=== PATIENT | female | born 1985 | race Caucasian/White ===

== ENCOUNTER 2019-05-02 20:13 | Emergency (ER) | payer BC, OTHER ==
[~2019-05-02] VITALS: Ht 162.6 cm; Wt 68.0 kg
--- NOTE | 2019-05-02 20:30 | ED Lower Extremity ---
General Chief Complaint: Lower Extremity Stated Complaint: LT FOOT INJ Source: patient Exam Limitations: no limitations History of Present Illness Date Seen by Provider: May 02, 2019 Time Seen by Provider: 20:15 Initial Comments The patient is a very pleasant 34-year-old female who presents for evaluation of a left foot injury. She states that she was helping to move a camper and put her foot down and ended up hitting the top of her foot on a piece of metal quite hard. She has some swelling to the top of the left foot and has significant pain when trying to fully bear weight. She denies any ankle pain or any other complaints. She is alert and oriented 4, calm, and appears to be in no distress. Location Injury Occurred: home Onset: just prior to arrival Severity: moderate Pain/Injury Location: right foot Method of Injury: direct blow Modifying Factors: Improves With Rest Allergies and Home Medications Patient Home Medication List Home Medication List Reviewed: Yes Review of Systems Constitutional: no symptoms reported EENTM: no symptoms reported Respiratory: no symptoms reported Cardiovascular: no symptoms reported Gastrointestinal: no symptoms reported Genitourinary: no symptoms reported Musculoskeletal: other (left foot pain, swelling on top of left foot, ttp over 2nd, 3rd, and 4th metatarsals) Skin: no symptoms reported Psychiatric/Neurological: No Symptoms Reported All Other Systems Reviewed Negative Unless Noted: Yes Past Baifdmj-Igqpjr-Yumfej Hx Past Med/Social Hx: Reviewed Nursing Past Med/Soc Hx Patient Social History Recent Foreign Travel: No Contact w/Someone Who Travel: No Physical Exam Vital Signs Capillary Refill : Height, Weight, BMI Height: '" Weight: lbs. oz. kg; BMI Method: General Appearance: WD/WN, no apparent distress HEENT: PERRL/EOMI, normal ENT inspection Cardiovascular: regular rate, rhythm, no edema Respiratory: normal breath sounds, no respiratory distress Feet: left foot bone tenderness (2nd, 3rd, 4th metatarsals), left foot limited range of motion, left foot swelling Neurologic/Psychiatric: clinical care coordinator II-XII nml as tested, alert, normal mood/affect, oriented x 3 Skin: normal color, warm/dry Progress/Results/Core Measures Results/Orders My Orders Orders - COREY WEEKS DO Ice: Apply To Affected Area (05/02/19 20:20) Foot 3 View Left (05/02/19 20:20) Progress Progress Note : Progress Note @2026 - preliminary read of the left foot x-ray film is unremarkable. Patient given Robbi wrap and crutches. Advised patient to follow up with her PCP and return to the emergency Department immediately for new or worsening symptoms. T he patient is stable for discharge. Departure Impression Primary Impression: Contusion of left foot Disposition: HOME, SELF-CARE Condition: Stable Departure-Patient Inst. Decision time for Depature: 20:35 Referrals: MONICA LOVETT DO Patient Instructions: Contusion (DC) Add. Discharge Instructions: He is a crutches provided. Follow-up with her doctor in the next 2-3 days. Apply ice and keep extremity elevated at home. Return to the emergency department for new or worsening symptoms. COREY WEEKS DO May 02, 2019 20:30
--- NOTE | 2019-05-02 20:35 | Diagnostic Imaging Report ---
INDICATION: Pain status post injury COMPARISON: None. FINDINGS: 3 views of the left foot demonstrate no acute fracture or dislocation. There are no focal osseous lesions. There is mild generalized soft tissue swelling. Joint spaces are well maintained. No radiopaque foreign bodies are seen. IMPRESSION: Mild generalized soft tissue swelling of the left foot, but no radiographic evidence of acute fracture or dislocation. Dictated by: Dictated on workstation # [id number]
[2019-05-02 20:52] VITALS: BP 114/75
== END 2019-05-02 20:52 | disposition home or self-care (01) ==
LOC: ER FS 20:15
DX: S90.32XA Contusion of left foot, initial encounter (principal); W22.8XXA Striking against or struck by other objects, initial encounter
CPT/HCPCS: 73630

== ENCOUNTER 2020-01-18 14:28 | Emergency (ER) | payer BC ==
[~2020-01-18] VITALS: Ht 163 cm; Wt 66.0 kg
--- NOTE | 2020-01-18 14:29 | ED General ---
General Stated Complaint: LT FOOT INJ History of Present Illness Date Seen by Provider: January 18, 2020 Time Seen by Provider: 14:29 Initial Comments Patient is a 34 y/o female who comes to the ER today c/o left foot injury. Patient was unhitching a pop-up camper with assistance of her . They accidentally lost control and dropped the tongue of the trailer. It landed over the dorsal aspect of her left foot causing a crush injury. Incident just happened prior to presentation. Minor abrasion to dorsal foot. Uncertain when her last tetanus imm was. Allergies and Home Medications Allergies Coded Allergies: Sulfa (Sulfonamide Antibiotics) (Verified Allergy, Unknown, 01/18/20) Home Medications Hydrocodone/Acetaminophen 1 Each Tablet, 1-2 EACH PO Q6H Prescribed by: DONAVON LANG on 01/18/20 1512 Ibuprofen 800 Mg Tablet, 800 MG PO Q8H PRN for PAIN Prescribed by: DONAVON LANG on 01/18/20 1512 Patient Home Medication List Home Medication List Reviewed: Yes Review of Systems Review of Systems Constitutional: no symptoms reported EENTM: no symptoms reported Respiratory: no symptoms reported Gastrointestinal: no symptoms reported : No Musculoskeletal: see HPI Physical Exam Vital Signs Vital Signs - First Documented 01/18/20 14:33 Temp 36.4 Pulse 100 Resp 18 B/P (MAP) 116/66 (83) Pulse Ox 98 Capillary Refill : Height, Weight, BMI Height: '" Weight: lbs. oz. kg; BMI Method: General Appearance: No Apparent Distress, WD/WN HEENT: PERRL/EOMI Neck: Full Range of Motion Respiratory: No Respiratory Distress Cardiovascular: Normal Peripheral Pulses Extremity: Other (Obvious deformity and swelling over the dorsal aspect of the left foot. Sensation to light touch intact over all dermatomes. 2+ dp pulses. Distal capillary refill < 2 seconds.) Neurologic/Psychiatric: Alert, Oriented x3 Progress/Results/Core Measures Suspected Sepsis SIRS Temperature: Pulse: Respiratory Rate: Blood Pressure / Mean: Results/Orders My Orders Orders - DONAVON LANG DO Foot 3 View Left (01/18/20 14:31) Dipht,Pertuss(Acell),Tet Adult (Boostrix (01/18/20 14:45) Hydrocodone/Apap 7.5/325 Tab (Lortab 7. (01/18/20 15:00) Ibuprofen Tablet (Motrin Tablet) (01/18/20 15:00) Ice: Apply To Affected Area (01/18/20 15:07) Robbi Bandage (01/18/20 15:07) Boot Heel Lift Suspension (01/18/20 15:07) Medications Given in ED Current Medications Medications Dose Ordered Sig/Ronan Route Start Time Stop Time Status Last Admin Dose Admin Acetaminophen/ Hydrocodone Bitart 1 ea ONCE ONCE PO 01/18/20 15:00 01/18/20 15:01 DC 01/18/20 14:51 1 EA Diphtheria/ Tetanus/Acell Pertussis 0.5 ml ONCE ONCE IM 01/18/20 14:45 01/18/20 14:46 DC 01/18/20 14:43 0.5 ML Ibuprofen 800 mg ONCE ONCE PO 01/18/20 15:00 01/18/20 15:01 DC 01/18/20 14:51 800 MG Vital Signs/I&O 01/18/20 14:33 Temp 36.4 Pulse 100 Resp 18 B/P (MAP) 116/66 (83) Pulse Ox 98 Capillary Refill : Progress Note : Time: 14:41 Progress Note Patient is seen and examined. XR ordered. Boostrix ordered. 15:15: XR returned with no acute fracture. Robbi wrap is applied and CAM boot walker. Patient given Rx for motrin/norco to use at home. Discharged and all of her questions are answered. Will return if sx are worsening or not improving. Otherwise will f/u with PCP as needed. Departure Impression Primary Impression: Contusion of foot, left Disposition: 01 HOME, SELF-CARE Condition: Improved Departure-Patient Inst. Scripts Hydrocodone/Acetaminophen (Hydrocodone-Acetamin 5-325 mg) 1 Each Tablet 1-2 EACH PO Q6H for Severe Pain, #16 TAB Prov: DONAVON LANG DO 01/18/20 Ibuprofen (Ibuprofen) 800 Mg Tablet 800 MG PO Q8H PRN for PAIN, #30 TAB 0 Refills Prov: DONAVON LANG DO 01/18/20 DONAVON LANG DO January 18, 2020 14:29
[2020-01-18 14:33] VITALS: BP 116/66
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
[2020-01-18] MEDS ORDERED: TETANUS,DIPTH,PERTUSS P/F (BOOSTRIX) 0.5 ML VIAL IM ONE (14:45)
[2020-01-18] MEDS ORDERED: HYDROcodone/APAP 7.5 MG/325 MG (LORTAB, LORCET PLUS) TABLET PO ONE (15:00)
[2020-01-18] MEDS ORDERED: IBUPROFEN 800 MG (MOTRIN) TAB PO ONE (15:00)
--- NOTE | 2020-01-18 15:03 | Diagnostic Imaging Report ---
INDICATION: Foot pain. EXAMINATION: Left foot wisam 2:39 p.m. Three views were obtained. FINDINGS: The previous left foot exam of 05/02/2019 failed to show any sign of an acute bony abnormality. On this study, there is still no fracture or dislocation identified. The lateral view does show that there is considerable soft tissue edema along the dorsum of the forefoot. There is no radiopaque foreign body identified in this area, however. The Lisfranc joint seems well maintained. There is still no evidence for a calcaneal spur. IMPRESSION: There is soft tissue edema along the dorsum of the forefoot but there is no evidence for a fracture or for a radiopaque foreign body. Dictated by: Dictated on workstation # [id number]
[2020-01-18] MEDS ORDERED: IBUP-1780 PO (15:12)
[2020-01-18] MEDS ORDERED: HYDR-83 PO (15:12)
== END 2020-01-18 15:15 | disposition home or self-care (01) ==
LOC: EDUNIT# 14:28 → ER FS 14:29
DX: S90.32XA Contusion of left foot, initial encounter (principal); Z88.2 Allergy status to sulfonamides; Z23 Encounter for immunization; W31.89XA Contact with other specified machinery, initial encounter
CPT/HCPCS: 73630; 90715

== ENCOUNTER → 2020-02-06 | Outpatient (CLI) | payer BC ==
[~2020-02-06] MED LIST: HYDR-83 PO; IBUP-1780 PO
--- NOTE | 2020-02-06 18:00 | Diagnostic Imaging Report ---
INDICATION: Left foot injury with pain and swelling. TIME OF EXAM: 3:31 p.m. COMPARISON: Correlation is made with prior radiograph from 01/18/2020. FINDINGS: The metatarsals appear to be intact. The phalanges are intact. Midfoot and hindfoot are unremarkable. No fractures are seen. Soft tissues are unremarkable. IMPRESSION: No acute abnormality is detected. Dictated by: Dictated on workstation # [id number]
== END ==
LOC: RAD FS 15:23
PROVIDERS: ATTEND Nurse Practitioner Family
DX: S99.922D Unspecified injury of left foot, subsequent encounter (principal)
CPT/HCPCS: 73630

== ENCOUNTER 2020-10-29 12:49 | Emergency (ER) | payer BC ==
[~2020-10-29] VITALS: Ht 162 cm; Wt 65.0 kg
[~2020-10-29 12:49] MED LIST changes: +ACHD5005 PO; -HYDR-83 PO
[2020-10-29] MEDS ORDERED: KETOROLAC 30 MG/ML VIAL IVP ONE (13:00)
[2020-10-29 13:18] LABS: BASOPHILS % (AUTO) 1 % (0-10); EOSINOPHILS # (AUTO) 0.1 10^3/uL (0.0-0.3); EOSINOPHILS % (AUTO) 1 % (0-10); HEMATOCRIT 38 % (35-52); HEMOGLOBIN 12.4 g/dL (11.5-16.0); LYMPHOCYTES % (AUTO) 14 % (12-44); MEAN CORPUSCULAR HEMOGLOBIN 28 pg (25-34); MEAN CORPUSCULAR HGB CONC 33 g/dL (32-36); MEAN CORPUSCULAR VOLUME 85 fL (80-99); MEAN PLATELET VOLUME 10.2 fL (9.0-12.2); MONOCYTES # (AUTO) 0.7 10^3/uL (0.0-1.0); MONOCYTES % (AUTO) 10 % (0-12); NEUTROPHILS # (AUTO) 5.7 10^3/uL (1.8-7.8); NEUTROPHILS % (AUTO) 75 % (42-75); PLATELET COUNT 344 10^3/uL (130-400); WHITE BLOOD COUNT 7.6 10^3/uL (4.3-11.0)
[2020-10-29 13:31] LABS: PROTHROMBIN TIME PATIENT 13.8 SEC (12.2-14.7)
[2020-10-29 13:32] LABS: ALBUMIN 4.3 GM/DL (3.2-4.5); CHLORIDE 107 MMOL/L (98-107); POTASSIUM 3.7 MMOL/L (3.6-5.0); SODIUM 138 MMOL/L (135-145)
[2020-10-29 13:34] LABS: CALCIUM 8.9 MG/DL (8.5-10.1)
[2020-10-29 13:35] LABS: GLUCOSE 106 MG/DL (70-105); TOTAL PROTEIN 7.6 GM/DL (6.4-8.2)
[2020-10-29 13:36] LABS: CARBON DIOXIDE 22 MMOL/L (21-32)
[2020-10-29 13:37] LABS: BILIRUBIN,TOTAL 0.6 MG/DL (0.1-1.0)
[2020-10-29 13:38] LABS: ALKALINE PHOSPHATASE 62 U/L (40-136); CREATININE SERUM 0.86 MG/DL (0.60-1.30); GFR ESTIMATED > 60
--- NOTE | 2020-10-29 13:38 | Diagnostic Imaging Report ---
INDICATION: Left breast pain starting one day earlier, now radiating into the chest and back. TECHNIQUE: Single view chest 1:19 PM. CORRELATION STUDY: None FINDINGS: The heart size, mediastinal configuration and pulmonary vascularity are within normal limits. The lungs are clear with no consolidating infiltrate. There is no significant effusion or pneumothorax. IMPRESSION: 1. Negative for acute abnormality of the chest. Dictated by: Dictated on workstation # [id number]
[2020-10-29 13:39] LABS: BUN/CREATININE RATIO 14
[2020-10-29 13:41] LABS: ALANINE AMINOTRANSFERASE 15 U/L (0-55); MAGNESIUM 2.2 MG/DL (1.6-2.4)
--- NOTE | 2020-10-29 13:49 | ED Chest Pain ---
General Chief Complaint: Chest Pain Stated Complaint: CP Nursing Triage Note: ARRIVED VIA AMB TO ROOM 08. STATES SHE SAW HER DR FOR LEFT BREAST PAIN YESTERDAY BUT TODAY THE PAIN IS RADIATING THRUOUT THE LEFT CHEST AND BACK. Nursing Sepsis Screen: No Definite Risk Source: patient Exam Limitations: no limitations History of Present Illness Date Seen by Provider: Oct 29, 2020 Time Seen by Provider: 12:46 Initial Comments To ER with reports of left breast tenderness for about a week. She has a history of fibrous breasts. This pain then spread up to the left arm. The pain is worsened by movement of the left arm and worsened by deep breathing. No fevers chills or injury. She called her primary care provider up in [place] who recommended she go to the emergency room. They are going to schedule her for a mammogram. Timing/Duration: constant Severity/Quality: moderate Location: central Radiation: no radiation Activities at Onset: none ASA po HSE MANAGER: No NTG SL HSE MANAGER: No Associated Symptoms: No shortness of breath Allergies and Home Medications Allergies Coded Allergies: Sulfa (Sulfonamide Antibiotics) (Verified Allergy, Unknown, 01/18/20) Home Medications Hydrocodone/Acetaminophen 1 Each Tablet, 1-2 EACH PO Q6H Prescribed by: DONAVON LANG on 01/18/20 1512 Ibuprofen 800 Mg Tablet, 800 MG PO Q8H PRN for PAIN Prescribed by: DONAVON LANG on 01/18/20 1512 Patient Home Medication List Home Medication List Reviewed: Yes Review of Systems Review of Systems Constitutional: see HPI EENTM: No Symptoms Reported Respiratory: No Symptoms Reported Cardiovascular: No Symptoms Reported Gastrointestinal: See HPI Genitourinary: No Symptoms Reported Musculoskeletal: no symptoms reported Skin: no symptoms reported Psychiatric/Neurological: No Symptoms Reported Endocrine: No Symptoms Reported Hematologic/Lymphatic: No Symptoms Reported Past Rdervqn-Gtsosz-Xwvdpa Hx Patient Social History Alcohol Use: Denies Use Smoking Status: Never a Smoker 2nd Hand Smoke Exposure: No Recent Infectious Disease Expo: No Recent Hopitalizations: No Seasonal Allergies Seasonal Allergies: No Past Medical History Surgeries: Yes (EGD with Stomach Dilation) Respiratory: No Cardiac: No Neurological: No Genitourinary: No Gastrointestinal: No Musculoskeletal: No Endocrine: No HEENT: No Cancer: No Psychosocial: No Integumentary: No Physical Exam Vital Signs Vital Signs - First Documented 10/29/20 12:49 Temp 37.0 Pulse 117 Resp 16 B/P (MAP) 132/94 (107) Pulse Ox 99 O2 Delivery Room Air Capillary Refill : Less Than 3 Seconds Height, Weight, BMI Height: 5'4.00" Weight: 150lbs. 0oz. 68.127229eg; 24.00 BMI Method:Stated General Appearance: No Apparent Distress, WD/WN Neck: Full Range of Motion, Normal Inspection Respiratory: No Accessory Muscle Use, No Respiratory Distress Gastrointestinal: Normal Bowel Sounds, Non Tender, Soft Extremity: Normal Capillary Refill, Normal Inspection Neurologic/Psychiatric: Alert, Oriented x3 Skin: Normal Color, Warm/Dry Other comments The left breast is normal in appearance without swelling, no erythema or skin changes. It is tender to palpation. Progress/Results/Core Measures Results/Orders Lab Results Laboratory Tests Test 10/29/20 13:11 Range/Units White Blood Count 7.6 4.3-11.0 10^3/uL Red Blood Count 4.42 3.80-5.11 10^6/uL Hemoglobin 12.4 11.5-16.0 g/dL Hematocrit 38 35-52 % Mean Corpuscular Volume 85 80-99 fL Mean Corpuscular Hemoglobin 28 25-34 pg Mean Corpuscular Hemoglobin Concent 33 32-36 g/dL Red Cell Distribution Width 13.2 10.0-14.5 % Platelet Count 344 130-400 10^3/uL Mean Platelet Volume 10.2 9.0-12.2 fL Immature Granulocyte % (Auto) 0 % Neutrophils (%) (Auto) 75 42-75 % Lymphocytes (%) (Auto) 14 12-44 % Monocytes (%) (Auto) 10 0-12 % Eosinophils (%) (Auto) 1 0-10 % Basophils (%) (Auto) 1 0-10 % Neutrophils # (Auto) 5.7 1.8-7.8 10^3/uL Lymphocytes # (Auto) 1.0 1.0-4.0 10^3/uL Monocytes # (Auto) 0.7 0.0-1.0 10^3/uL Eosinophils # (Auto) 0.1 0.0-0.3 10^3/uL Basophils # (Auto) 0.0 0.0-0.1 10^3/uL Immature Granulocyte # (Auto) 0.0 0.0-0.1 10^3/uL Prothrombin Time 13.8 12.2-14.7 SEC INR Comment 1.0 0.8-1.4 Activated Partial Thromboplast Time 29 24-35 SEC D-Dimer 0.35 0.00-0.49 UG/ML Sodium Level 138 135-145 MMOL/L Potassium Level 3.7 3.6-5.0 MMOL/L Chloride Level 107 98-107 MMOL/L Carbon Dioxide Level 22 21-32 MMOL/L Anion Gap 9 5-14 MMOL/L Blood Urea Nitrogen 12 7-18 MG/DL Creatinine 0.86 0.60-1.30 MG/DL Estimat Glomerular Filtration Rate > 60 BUN/Creatinine Ratio 14 Glucose Level 106 H 70-105 MG/DL Calcium Level 8.9 8.5-10.1 MG/DL Corrected Calcium 8.7 8.5-10.1 MG/DL Magnesium Level 2.2 1.6-2.4 MG/DL Total Bilirubin 0.6 0.1-1.0 MG/DL Aspartate Amino Transf (AST/SGOT) 19 5-34 U/L Alanine Aminotransferase (ALT/SGPT) 15 0-55 U/L Alkaline Phosphatase 62 40-136 U/L Myoglobin 15.3 10.0-92.0 NG/ML Troponin I < 0.028 <0.028 NG/ML B-Type Natriuretic Peptide < 10.0 <100.0 PG/ML Total Protein 7.6 6.4-8.2 GM/DL Albumin 4.3 3.2-4.5 GM/DL Serum Test, Qualitative NEGATIVE NEGATIVE My Orders Orders - DORYS ALFORD APRN Cbc With Automated Diff (10/29/20 12:51) Magnesium (10/29/20 12:51) Chest 1 View, Ap/Pa Only (10/29/20 12:51) Ekg Tracing (10/29/20 12:51) Comprehensive Metabolic Panel (10/29/20 12:51) Myoglobin Serum (10/29/20 12:51) Protime With Inr (10/29/20 12:51) Partial Thromboplastin Time (10/29/20 12:51) O2 (10/29/20 12:51) Monitor-Rhythm Ecg Trace Only (10/29/20 12:51) Lipid Panel (10/30/20 06:00) Ed Iv/Invasive Line Start (10/29/20 12:51) BNP (10/29/20 12:51) Ketorolac Injection (Toradol Injection) (10/29/20 13:00) Troponin I (10/29/20 13:11) Fibrin Degradation Products (10/29/20 13:45) Hcg,Qualitative Serum (10/29/20 13:49) Medications Given in ED Current Medications Medications Dose Ordered Sig/Ronan Route Start Time Stop Time Status Last Admin Dose Admin Ketorolac Tromethamine 15 mg ONCE ONCE IVP 10/29/20 13:00 10/29/20 13:01 DC 10/29/20 13:10 15 MG Vital Signs/I&O 10/29/20 12:49 Temp 37.0 Pulse 117 Resp 16 B/P (MAP) 132/94 (107) Pulse Ox 99 O2 Delivery Room Air Blood Pressure Mean: 107 Departure Impression Primary Impression: Chest pain Disposition: 01 HOME, SELF-CARE Condition: Stable Departure-Patient Inst. Decision time for Depature: 14:10 Referrals: NO,LOCAL PHYSICIAN (PCP/Family) Primary Care Physician Patient Instructions: Chest Pain Add. Discharge Instructions: 1. Follow-up with your doctor next week to evaluate with mammogram. Return to ER for any concerns. All discharge instructions reviewed with patient and/or family. Voiced understanding. DORYS ALFORD APRN Oct 29, 2020 13:49
[2020-10-29 14:25] VITALS: BP 121/79
== END 2020-10-29 14:25 | disposition home or self-care (01) ==
LOC: EDUNIT# 12:49 → ER 12:51
DX: R07.9 Chest pain, unspecified (principal); Z88.2 Allergy status to sulfonamides
CPT/HCPCS: 36415; 71045; 80053; 83735; 83874; 83880; 84484; 84703; 85025; 85379; 85610; 85730; 93005; 93041